=== PATIENT | male | born 1940 | race Caucasian/White ===

== ENCOUNTER 2017-07-18 12:29 | Outpatient (CLI) | payer MEDICARE, BC ==
--- NOTE | 2017-07-18 16:04 | ULT ---
TESTICULAR ULTRASOUND: HISTORY: Sharp testicular pain for about a year. FINDINGS: Real-time imaging of the right and left testes was performed. The right testicle measures 3.9 and t he left testicle 3.3 cm in size. There is a tiny 2 x 4 mm septated cyst involving the inferior pole of the left testis. The left epididymis shows a 1 cm cyst. The right epididymis region is unremarkable. DOPPLER EVALUATION WITH SPECTRAL ANALYSIS: Normal flow is shown to both testes. There is prominent flow which appears to be related to bilater al varicoceles. IMPRESSION: 1. Septated cyst involving the inferior pole of the patella measuring x 4 mm. 2. Bilateral varicoceles. 3. A 1 cm left epididymal cyst. POS: [facility]
== END 2017-07-18 12:30 | disposition home or self-care (01) ==
LOC: ULT 12:29
PROVIDERS: ATTEND Urology
DX: N50.819 Testicular pain, unspecified (principal); I86.1 Scrotal varices
CPT/HCPCS: 76870; 93976

== ENCOUNTER 2019-01-29 14:21 | Outpatient (CLI) | payer MEDICARE, BC ==
--- NOTE | 2019-01-29 15:19 | ULT ---
LEFT TESTICULAR ULTRASOUND WITH DOPPLER: HISTORY: Testicular cyst. COMPARISON: 07/18/2017. TECHNIQUE: Salomon scale, color flow, Doppler imaging with spectral waveform analysis performed of the left and rig ht testicle. FINDINGS: Right Hemiscrotum: Right testicle has a homogeneous echotexture. No intratesticular mass. The right testicle measures 4.0 x 1.9 x 2.3 cm. Right epididymis measures 0.7 x 0.8 cm. There are vessels in the right groin wh ich increase upon Valsalva, compatible with varicocele. No significant fluid in the right hemiscrotu m. Left Hemiscrotum: There is redemonstration of an anechoic focus in the left testicle measuring 0.3 x 0.2 x 0.3 cm. Pre viously, this anechoic focus measured 0.4 x 0.5 x 0.2 cm. Previously suggested septation and bilobed appearance is once again demonstrated. There is a complex cyst in the left epididymis, measuring 1.5 cm. Epididymal cyst was noted on the p revious examination and has not changed. Overall, the left epididymis measures 1.8 x 0.9 cm. There are tubular structures in the left groin which increase upon Valsalva, compatible with varicoce les. No significant fluid in the left hemiscrotum. Testicular Doppler: There is vascular flow to both testicles, symmetric. IMPRESSION: 1. Bilateral varicoceles. 2. Stable left epididymal cyst. 3. Stable left intratesticular cyst. POS: [facility]
== END 2019-01-29 14:22 | disposition home or self-care (01) ==
LOC: BICULT 14:21
PROVIDERS: ATTEND Urology
DX: N44.2 Benign cyst of testis (principal); I86.1 Scrotal varices; N50.3 Cyst of epididymis
CPT/HCPCS: 76870; 93976

== ENCOUNTER 2019-05-10 08:18 | Outpatient (CLI) | payer MEDICARE, BC ==
--- NOTE | 2019-05-10 10:02 | MRI ---
MRI LUMBAR SPINE WITH AND WITHOUT CONTRAST: DATE: 05/10/2019 HISTORY: 78-year-old male with low back pain and bilateral lower extremity hypesthesia, left worse than right. COMPARISON: 11/10/2015 TECHNIQUE: Multiple sequences obtained in axial and sagittal planes, pre and post IV injection of gadolinium-bas ed contrast agent. FINDINGS: 5 lumbar-type vertebrae. Vertebral body heights are maintained. No major bone marrow signal abnormali ty. No major spondylolisthesis. 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 No major scoliosis. Conus medullaris terminates at L1-2. T12-L1:Normal L1-2:Disc space maintained. Mild, shallow central and bilateral paracentral broad-based disc protrusi on. No central or neural foraminal stenosis. L2-3:Disc space maintained. Minimal, shallow central and bilateral paracentral broad-based disc protr usion. No central or neural foraminal stenosis. L3-4:Narrowing of the posterior aspect of the disc space. Diffuse disc bulge. No high-grade neural fo raminal stenosis. Mild bilateral degenerative facet hypertrophy. Mild to moderate ligamentum flavum thickening appears slightly worse than previously. Slight interval worsening of central spinal canal stenosis, now mild to moderate. L4-5:Moderate disc space narrowing. Again noted is the diffuse disc bulge. Again noted is the left he milaminectomy defect resulting in generous caliber of the overall cross-sectional area of the spinal canal and thecal sac. Mild to moderate bilateral neural foraminal stenosis, right greater than left, unchanged. Moderate right facet DJD. Mild to moderate left facet DJD. No overall interval change. L5-S1:Moderate disc space narrowing. Diffuse disc bulge. No central spinal canal stenosis. Conjoined nerve root. Mild to moderate bilateral facet DJD. Moderate bilateral neural foraminal stenosis. The left neural foraminal stenosis appears minimally worse now than previously, with chronic the formatio n of the exiting left L5 nerve root. No other significant interval change. IMPRESSION: 1) lumbar spondylosis consisting of moderate degenerative disc disease at lower levels, and facet ost eoarthrosis. 2) status post left hemilaminectomy at L4-5. 3) bilateral neural foraminal stenosis at L5-S1. 4) minimal interval changes since 2015.
[2019-05-10] MEDS ORDERED: Gadobenate Dimeglumine 529 MG/1 ML (20ML VIAL) ONE (14:33)
== END 2019-05-10 08:19 | disposition home or self-care (01) ==
LOC: BICMRI 08:18
PROVIDERS: ATTEND Neurological Surgery
DX: M47.26 Other spondylosis with radiculopathy, lumbar region (principal); M48.07 Spinal stenosis, lumbosacral region; Z98.890 Other specified postprocedural states
CPT/HCPCS: 72158; 82565; A9577

== ENCOUNTER 2019-05-21 09:35 | Outpatient (CLI) | payer MEDICARE, BC ==
[2019-05-21 11:33] LABS: Hemoglobin 14.4 g/dL (14.0-18.0); Mean Corpuscular HGB CONC 34.4 g/dL (32.0-36.0); Mean Corpuscular Hemoglobin 31.5 pg (27.0-31.0); Mean Corpuscular Volume 91.5 fL (78.0-98.0); Mean Platelet Volume 8.3 fL (7.4-10.4); Platelet Count 190 thou/uL (130-400); RBC Distribution Width 13.1 % (11.5-14.5); Red Blood Cell (RBC) Count 4.58 mill/uL (4.70-6.10); White Blood Cell (WBC) Count 6.3 thou/uL (4.8-10.8)
[2019-05-21 11:35] LABS: Bacteria/HPF None Seen HPF (None Seen); Bilirubin Negative (Negative); Blood, Urine Negative (Negative); Clarity Clear (Clear); Glucose, Urine (Dipstick) Normal (Negative); Leukocyte 25 Leu/uL (Negative); Nitrite Negative (Negative); Protein, Urine (Dipstick) 20 mg/dL (Neg-Trace); RBC/HPF 0-3 HPF (0-3); Squamous Epithelial None Seen HPF (0-3)
[2019-05-21 11:38] LABS: PTT 29.9 SEC (22.9-36.1); Prothrombin Time 13.4 SEC (12.0-14.7)
[2019-05-21 11:57] LABS: Anion Gap 13 mmol/L (10-20); BUN (Urea Nitrogen) 14 mg/dL (8.4-25.7); Calc. Creatinine Clearance 0 mL/min (70-130); Calcium 9.3 mg/dL (7.8-10.44); Carbon Dioxide 24 mmol/L (23-31); Chloride 108 mmol/L (98-107); Estimated GFR-MDRD 70; Glucose 90 mg/dL (83-110); Potassium 4.3 mmol/L (3.5-5.1); Sodium 141 mmol/L (136-145)
== END 2019-05-21 09:36 | disposition home or self-care (01) ==
LOC: LABBT 09:35
PROVIDERS: ATTEND Urology
DX: Z01.818 Encounter for other preprocedural examination (principal); N44.2 Benign cyst of testis; N50.82 Scrotal pain; N40.1 Benign prostatic hyperplasia with lower urinary tract symptoms; R39.12 Poor urinary stream
CPT/HCPCS: 80048; 81001; 85027; 85610; 85730; 87086; 93005; 93010

== ENCOUNTER 2019-05-28 09:04 | Day surgery (SDC) | payer MEDICARE, BC ==
[2019-05-21 10:00] VITALS: BMI 26.3
[2019-05-28] MEDS ORDERED: Lidocaine 1% PF 5 ML VIAL ONE (11:31)
[2019-05-28] MEDS ORDERED: Levofloxacin 500 mg/D5W 100 ml Premix Bag ONE (11:32)
--- NOTE | 2019-05-28 13:23 | OP ---
DATE OF PROCEDURE: 05/28/2019 SERVICE: Urology. PREOPERATIVE DIAGNOSIS: Benign prostatic hypertrophy with obstruction. POSTOPERATIVE DIAGNOSIS: Benign prostatic hypertrophy with obstruction. PROCEDURE PERFORMED: UroLift with four implants. INDICATION FOR PROCEDURE: Mr. Bonner is a 78-year-old white male, who presented with a history of BPH and urinary symptoms. Cystoscopy demonstrated a bilobar hypertrophy with ultrasound findings consistent with favorability for UroLift. We discussed the procedure with risks and benefits, and he has agreed to proceed forward. DESCRIPTION OF PROCEDURE: After identification of armband and verification of consent, the patient was brought back to the operating room, where he underwent initially total intravenous anesthesia. Due to significant patient's movement, he had to be converted to general anesthesia with an LMA. He was then placed in dorsal lithotomy position and then prepped and draped in usual sterile fashion. After appropriate time-out, a lubricated 21-Eritrean rigid cystoscope was introduced per urethra into the prostate, which showed the bilobar hypertrophy as expected. The bladder was otherwise unremarkable. The visual obturator was switched out for the UroLift device. Initial implant was done on the right lateral aspect of the prostate closer to the bladder neck. The device was positioned with a 20-degree lateral compression of the prostate lobe with lift maneuver as well as being far enough away from the bladder neck. The safety was released and the blue trigger fired to deploy the needle. The marti trigger was then deployed to deploy the UroLift device. The device was then advanced forward until the white line was in the keyhole. At which point, the release with a steel tab was placed deploying the final device. Upon completion, there was a nice lateral compression of the right lateral lobe. This was repeated on the left lateral lobe near the bladder neck taking care to be positioned far enough away from the bladder neck. Two additional implants were placed closer to the verumontanum for compression of the lateral lobes there. Upon completion, the prostate did appear wide open. There was mild bleeding, but nothing significant. The UroLift device was then removed. An 18-Eritrean Barajas catheter was placed into the patient's bladder with 10 mL of sterile water placed into the balloon. His catheter was hooked up to gravity drainage bag, and then, he was awakened and taken to PACU for recovery in stable condition. COMPLICATIONS: None. ESTIMATED BLOOD LOSS: Minimal. RETAINED TUBES AND DRAINS: An 18-Erit[place]an Barajas catheter with 10 mL in the balloon. SPECIMENS: None. IMPLANT: Total implants deployed are 4. DISPOSITION: The patient will be kept in recovery. We will watch his catheter. After 30 minutes, if his urine is not too red, we can do a void trial and he can be discharged home. Job ID: [id number]
== END 2019-05-28 15:45 | disposition home or self-care (01) ==
LOC: SDC 09:04
PROVIDERS: ATTEND Urology
PROC: 0T7D8DZ Dilation of Urethra with Intraluminal Device, Via Natural or Artificial Opening Endoscopic (ICD-10-PCS; principal; 2019-05-28)
DX: N40.1 Benign prostatic hyperplasia with lower urinary tract symptoms (principal); R35.0 Frequency of micturition; R39.15 Urgency of urination; R39.12 Poor urinary stream; N52.01 Erectile dysfunction due to arterial insufficiency; N44.2 Benign cyst of testis; E78.5 Hyperlipidemia, unspecified; G47.33 Obstructive sleep apnea (adult) (pediatric); M19.90 Unspecified osteoarthritis, unspecified site; G89.29 Other chronic pain; M54.9 Dorsalgia, unspecified; F32.9 Major depressive disorder, single episode, unspecified; Z79.899 Other long term (current) drug therapy; Z99.89 Dependence on other enabling machines and devices
CPT/HCPCS: C1889; C9740; J1956; J2001

== ENCOUNTER 2020-05-23 08:38 | Outpatient (CLI) | payer MEDICARE, BC ==
--- NOTE | 2020-05-23 10:44 | MRI ---
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 COMPARISON: None. FINDINGS: BONES: There is a type II lunate with a medial facet with articulation of the hamate. There is narrowing of the cartilage between the hamate and the lunate with subcortical reactive marrow change of the hamat e. Small subcortical cyst volar aspect of the capitate and the hamate likely from prior extrinsic ligame nt injury. The capitohamate ligament itself is intact. The cartilage and joint space between the ca pitate and hamate are maintained. Utero scaphoid articulation is normal with adequate cartilage. No evidence for slack wrist. The scapholunate and endotriquetral alignment is maintained. Normal ulnar variance. TENDONS: There is normal location of the extensor carpal ulnaris without subluxation. No slip tear. No signi ficant flexor or extensor tenosynovitis. MUSCLES: Muscle signal and bulk is normal. SOFT TISSUES: Low-grade synovitis along the ulna carpal articulation. TRIANGULAR FIBROCARTILAGE: Likely a central perforation of the articular disk, although incompletely evaluated. No soft tissue abnormality at the region of interest marker. IMPRESSION: 1. 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 2. Small subcortical cysts along the palmar aspect of the hamate and cavitate like sequelae of a cherie or extrinsic ligament injury, radioscaphocapitate or ulnocapitate ligaments and possibly even intrins ic ligament injury of the triquetrohamocapitate ligament. 3. No evidence for SLAC wrist. 4. Degenerative central perforation of triangular fibrocartilage. 5. No 5th metacarpal stress fracture. No soft tissue mass at the region of interest marker dorsal a spect of the hand. 6. Intact hook of the hamate and tubercle of the trapezium. 7. Low-grade ulnocarpal synovitis. POS: [facility]
== END 2020-05-23 08:39 | disposition home or self-care (01) ==
LOC: TBSIIMAG 08:38
PROVIDERS: ATTEND Orthopaedic Surgery Hand Surgery
DX: D16.11 Benign neoplasm of short bones of right upper limb (principal); M65.9 Synovitis and tenosynovitis, unspecified; M84.341A Stress fracture, right hand, initial encounter for fracture; M19.031 Primary osteoarthritis, right wrist; M25.831 Other specified joint disorders, right wrist

== ENCOUNTER 2020-07-26 10:47 | Outpatient (CLI) | payer MEDICARE, BC ==
--- NOTE | 2020-07-26 15:21 | MRI ---
MR OF THE LEFT ELBOW WITHOUT CONTRAST: 07/26/20 INDICATION: History of tennis elbow. COMPARISON: None. FINDINGS: The biceps, brachialis, and triceps insertions appear within normal limits. There is prominent tendin osis involving the right common extensor origin. The left common flexor origin appears within normal limits. The ulnar collateral ligament, radial collateral ligament and lateral ulnar collateral ligame nt appear intact. The visualized aspect of the ulnar nerve appear within normal limits. IMPRESSION: Severe lateral humeral epicondylitis. POS: [facility]
== END 2020-07-26 10:48 | disposition home or self-care (01) ==
LOC: TBSIIMAG 10:47
PROVIDERS: ATTEND Orthopaedic Surgery
DX: M77.12 Lateral epicondylitis, left elbow (principal)

== ENCOUNTER 2022-03-04 10:33 | Outpatient (CLI) | payer MEDICARE, BC | END 2022-03-04 10:34 | disposition home or self-care (01) | LOC: CT 10:33 | PROVIDERS: ATTEND Student in an Organized Health Care Education/Training Program | DX: J32.0 Chronic maxillary sinusitis (principal) | CPT/HCPCS: 70486 ==

== ENCOUNTER 2022-03-28 07:59 | Outpatient (CLI) | payer MEDICARE, BC ==
[2022-03-28 09:22] LABS: Hemoglobin 13.8 g/dL (13.5-17.5); Mean Corpuscular Hemoglobin 30.7 pg (27.0-33.0); Mean Corpuscular Volume 93.1 fl (81.2-95.1); Mean Platelet Volume 10.6 fl (7.4-10.4); Platelet Count 186 10x3/uL (150-450); RBC Distribution Width 13.8 % (11.5-14.5); Red Blood Cell (RBC) Count 4.49 10x6/uL (4.32-5.72); White Blood Cell (WBC) Count 6.4 10x3/uL (3.5-10.5)
[2022-03-28 09:49] LABS: Anion Gap 13 mmol/L (10-20); BUN (Urea Nitrogen) 14 mg/dL (8.4-25.7); Calc. Creatinine Clearance 0 mL/min (70-130); Calcium 9.3 mg/dL (7.8-10.44); Carbon Dioxide 25 mmol/L (23-31); Chloride 109 mmol/L (98-107); Glucose 138 mg/dL (83-110); Potassium 4.2 mmol/L (3.5-5.1); Sodium 143 mmol/L (136-145)
== END 2022-03-28 08:00 | disposition home or self-care (01) ==
LOC: LABBT 07:59
PROVIDERS: ATTEND Student in an Organized Health Care Education/Training Program
DX: Z01.818 Encounter for other preprocedural examination (principal); Z20.822 Contact with and (suspected) exposure to COVID-19
CPT/HCPCS: 80048; 85027; 93005; U0003; U0005; 93010

== ENCOUNTER 2022-04-02 07:36 | Day surgery (SDC) | payer MEDICARE, BC ==
[2022-03-29 10:27] VITALS: BMI 25.0
[2022-04-02] MEDS ORDERED: Oxymetazoline HCl 0.05% (30 ML BOT) ONE ×2 (08:39→11:10)
[2022-04-02] MEDS ORDERED: Bacitracin Zinc Ointment 30 gm TUBE ONE (11:10)
[2022-04-02] MEDS ORDERED: Lidocaine 1% w/Epinephrine 1:100K 30 ML VIAL ONE (11:10)
[2022-04-02] MEDS ORDERED: fentaNYL Citrate/PF 100 MCG/2 ML SYRINGE ONE (11:25)
[2022-04-02] MEDS ORDERED: Ondansetron PF 4 MG/2 ML Vial ONE (11:28)
[2022-04-02] MEDS ORDERED: Glycopyrrolate 0.2 MG/ML 5 ML SYRINGE ONE (11:28)
[2022-04-02] MEDS ORDERED: PROPOFOL 200 MG/20 ML VIAL ONE (11:28)
[2022-04-02] MEDS ORDERED: Lidocaine 1% PF 5 ML VIAL ONE (11:28)
[2022-04-02] MEDS ORDERED: Dexamethasone 20 MG/5 ML VIAL ONE (11:28)
[2022-04-02] MEDS ORDERED: Rocuronium Bromide 10 MG/ML (10ML VIAL) ONE (11:28)
[2022-04-02] MEDS ORDERED: Triamcinolone 40 MG/ML VIAL ONE (14:06)
== END 2022-04-02 16:21 | disposition home or self-care (01) ==
LOC: SDC 07:36
PROVIDERS: ATTEND Student in an Organized Health Care Education/Training Program
PROC: 09SM0ZZ Reposition Nasal Septum, Open Approach (ICD-10-PCS; principal; 2022-04-02)
PROC: 099R8ZZ Drainage of Left Maxillary Sinus, Via Natural or Artificial Opening Endoscopic (ICD-10-PCS; 2022-04-02)
PROC: 09BV8ZZ Excision of Left Ethmoid Sinus, Via Natural or Artificial Opening Endoscopic (ICD-10-PCS; 2022-04-02)
PROC: 0CQ Mouth and Throat, Repair (ICD-10-PCS; 2022-04-02)
DX: J32.8 Other chronic sinusitis (principal); J34.2 Deviated nasal septum; J34.89 Other specified disorders of nose and nasal sinuses; G47.33 Obstructive sleep apnea (adult) (pediatric); E78.5 Hyperlipidemia, unspecified; N40.0 Benign prostatic hyperplasia without lower urinary tract symptoms; M10.9 Gout, unspecified; Z79.899 Other long term (current) drug therapy
CPT/HCPCS: 30520; 30580; 31254; 31256; Q4166; J1100; J2405; J2704; J3301

== ENCOUNTER 2022-07-11 08:09 | Outpatient (CLI) | payer MEDICARE, BC ==
[2022-07-11 11:07] LABS: Hemoglobin 14.1 g/dL (13.5-17.5)
[2022-07-11 11:32] LABS: Anion Gap 11 mmol/L (10-20); BUN (Urea Nitrogen) 18 mg/dL (8.4-25.7); Calc. Creatinine Clearance 0 mL/min (70-130); Calcium 8.7 mg/dL (7.8-10.44); Carbon Dioxide 27 mmol/L (23-31); Chloride 106 mmol/L (98-107); Estimated GFR 79; Glucose 130 mg/dL (83-110); Potassium 3.9 mmol/L (3.5-5.1); Sodium 140 mmol/L (136-145)
== END 2022-07-11 08:10 | disposition home or self-care (01) ==
LOC: LABBT 08:09
PROVIDERS: ATTEND Student in an Organized Health Care Education/Training Program
DX: Z01.818 Encounter for other preprocedural examination (principal); J32.0 Chronic maxillary sinusitis; R09.81 Nasal congestion; M25.18 Fistula, other specified site
CPT/HCPCS: 80048; 85014; 85018; 93005; 93010

== ENCOUNTER 2022-07-16 06:29 | Day surgery (SDC) | payer MEDICARE, BC ==
[2022-07-15 10:08] VITALS: BMI 25.0
[2022-07-16] MEDS ORDERED: EPINEPHrine 1 MG/ML AMP ONE (08:22)
[2022-07-16] MEDS ORDERED: Lidocaine 1% (PF) 30 ML VIAL ONE (08:22)
[2022-07-16] MEDS ORDERED: fentaNYL Citrate/PF 100 MCG/2 ML SYRINGE ONE (08:24)
[2022-07-16] MEDS ORDERED: Dexamethasone 20 MG/5 ML VIAL ONE (08:32)
[2022-07-16] MEDS ORDERED: Phenylephrine 10 MG/ML VIAL ONE (08:32)
[2022-07-16] MEDS ORDERED: Rocuronium Bromide 10 MG/ML (10ML VIAL) ONE (08:32)
[2022-07-16] MEDS ORDERED: PROPOFOL 200 MG/20 ML VIAL ONE (08:32)
[2022-07-16] MEDS ORDERED: Ondansetron PF 4 MG/2 ML Vial ONE (08:32)
[2022-07-16] MEDS ORDERED: Lidocaine 1% MPF 2 ML VIAL ONE (08:32)
[2022-07-16] MEDS ORDERED: Oxymetazoline HCl 0.05% (30 ML BOT) ONE (08:46)
== END 2022-07-16 11:10 | disposition home or self-care (01) ==
LOC: SDC 06:29
PROVIDERS: ATTEND Student in an Organized Health Care Education/Training Program
PROC: 09JK8ZZ Inspection of Nasal Mucosa and Soft Tissue, Via Natural or Artificial Opening Endoscopic (ICD-10-PCS; principal; 2022-07-16)
PROC: 09Q Ear, Nose, Sinus, Repair (ICD-10-PCS; 2022-07-16)
DX: J32.0 Chronic maxillary sinusitis (principal); E78.5 Hyperlipidemia, unspecified; N40.0 Benign prostatic hyperplasia without lower urinary tract symptoms; M19.90 Unspecified osteoarthritis, unspecified site; G47.33 Obstructive sleep apnea (adult) (pediatric); Z79.899 Other long term (current) drug therapy
CPT/HCPCS: J0171; J1100; J2001; J2370; J2405; J2704

== ENCOUNTER 2023-09-02 17:00 | Outpatient (CLI) | payer MEDICARE, BC | END 2023-09-02 17:01 | disposition home or self-care (01) | LOC: SLEEPLAB 17:00 | PROVIDERS: ATTEND Otolaryngology Otolaryngic Allergy | DX: G47.33 Obstructive sleep apnea (adult) (pediatric) (principal); G47.61 Periodic limb movement disorder; G47.10 Hypersomnia, unspecified | CPT/HCPCS: 95810 ==